=== PATIENT | male | born 1945 | race Caucasian/White ===

== ENCOUNTER 2017-07-12 14:24 | Observation (INO) | payer OTHER ==
[~2017-07-12] VITALS: Ht 180.3 cm; Wt 75.3 kg
[2017-07-12 14:38] VITALS: BP 163/67
[2017-07-12 14:47] VITALS: Ht 180.3 cm; Wt 75.3 kg
[2017-07-12 16:45] LABS: ALBUMIN 3.4 g/dL (3.4-5.0); ALKALINE PHOSPHATASE 79 U/L (46-116); ALT/SGPT 19 U/L (16-63); AMYLASE 32 U/L (25-115); AST/SGOT 17 U/L (15-37); BILIRUBIN TOTAL 0.8 mg/dL (0.20-1.00); CALCIUM 8.2 mg/dL (8.5-10.1); CARBON DIOXIDE 28.8 mmol/L (21-32); CHLORIDE SERUM 106 mmol/L (98-107); CREATININE SERUM 0.8 mg/dL (0.7-1.3); GLUCOSE SERUM 86 mg/dL (74-106); LIPASE 351 IU/L (73-393); POTASSIUM SERUM 4.1 mmol/L (3.5-5.1); SODIUM SERUM 143 mmol/L (136-145); TOTAL PROTEIN, SERUM 6.4 g/dL (6.4-8.2); TRIGLYCERIDES 41 mg/dL (<150)
[2017-07-12 16:46] LABS: CHOLESTEROL 204 mg/dL (<200); CHOLESTEROL/HDL RATIO 2.8; HDL CHOLESTEROL 73 mg/dL (40-60)
[2017-07-12 17:20] LABS: FREE T4 0.72 ng/dL (0.76-1.46); FREE THYROXINE INDEX 2.2 ug/dL (1.4-4.5); T4(THYROXINE) 6.6 ug/dL (4.7-13.3)
[2017-07-12 17:30] VITALS: BP 147/67
[2017-07-12 17:35] LABS: T3 TOTAL 0.84 ng/mL
[2017-07-12] MEDS ORDERED: TRAMADOL HCL50 MG PO (18:13)
[2017-07-12] MEDS ORDERED: DICLOFENAC SOD75 M1 PO (18:14)
[2017-07-12] MEDS ORDERED: CARISOPRODOL350 MG PO (18:15)
[2017-07-12] MEDS ORDERED: ALPRAZOLAM0.25 MG PO (18:20)
[2017-07-12] MEDS ORDERED: MELOXICAM15 M1 PO (18:50)
[2017-07-12] MEDS ORDERED: MIRAPEX0.25 MG PO (18:51)
[2017-07-12] MEDS ORDERED: ISOSORBIDE DINIT5 M2 PO (18:52)
[2017-07-12] MEDS ORDERED: LOVASTATIN40 MG PO (18:53)
[2017-07-12 18:55] LABS: microscopic required? NO
[2017-07-12 19:12] LABS: AMPHETAMINE QUAL UR NONE DETECTED (NEG <=1000)
[2017-07-12 19:17] LABS: UA SPECIFIC GRAVITY 1.025 (1.005-1.035); urine erythrocyte NEGATIVE (NEGATIVE)
[2017-07-12 21:22] VITALS: BP 148/64
[2017-07-13 05:32] VITALS: BP 132/56
[2017-07-13 07:00] LABS: BASOPHIL % 0.4 % (0-2); PLATELET COUNT 162 x10^3mcL (130-400); RED CELL DISTRIBUTION WIDTH 16.6 % (11.5-14.5)
[2017-07-13 07:23] LABS: CALCIUM 8.3 mg/dL (8.5-10.1); CARBON DIOXIDE 29.3 mmol/L (21-32); CHLORIDE SERUM 108 mmol/L (98-107); CREATININE SERUM 0.9 mg/dL (0.7-1.3); GLUCOSE SERUM 103 mg/dL (74-106); POTASSIUM SERUM 4.1 mmol/L (3.5-5.1); SODIUM SERUM 143 mmol/L (136-145)
[2017-07-13 09:49] VITALS: BP 140/62
[2017-07-13 13:59] VITALS: BP 158/89
[2017-07-13] MEDS ORDERED: NATURE'S BLEND500 MG PO (15:19)
[2017-07-13] MEDS ORDERED: MASON NATURAL1000 IU PO (15:19)
[2017-07-13 15:23] LABS: BASOPHIL % 0.6 % (0-2); PLATELET COUNT 155 x10^3mcL (130-400)
[2017-07-13 15:28] LABS: RED CELL DISTRIBUTION WIDTH 16.3 % (11.5-14.5)
[2017-07-13 17:12] VITALS: BP 148/73
== END 2017-07-13 19:00 | disposition home or self-care (01) | DRG 74 ==
LOC: DU 14:24
PROVIDERS: Family Medicine
DX: G90.9 Disorder of the autonomic nervous system, unspecified (principal); I42.2 Other hypertrophic cardiomyopathy; I35.1 Nonrheumatic aortic (valve) insufficiency; M19.90 Unspecified osteoarthritis, unspecified site; M50.322 Other cervical disc degeneration at C5-C6 level; E83.51 Hypocalcemia; E78.5 Hyperlipidemia, unspecified; F41.9 Anxiety disorder, unspecified; F17.210 Nicotine dependence, cigarettes, uncomplicated; Z68.23 Body mass index [BMI] 23.0-23.9, adult
CPT/HCPCS: 83880; 84439; G0378; J7030; Q0092